=== PATIENT | female | born 1945 | race Caucasian/White ===

== ENCOUNTER → 2016-08-20 | Outpatient (CLI) | payer MEDICARE, BC ==
[~2016-08-20] MED LIST: ASCO-285 PO; CALC-586 PO; CHON250C2 PO; ETAN50DI3 SQ; FOLIC ACID PO; LEVO88TA39 PO; METH25PO21 MC; MULT1CAP47 PO; TRAM50TA53 PO; [UNRECOGNIZED DRUG - CODE] TD
== END ==
LOC: WC.BC 11:26
DX: Z12.31 Encounter for screening mammogram for malignant neoplasm of breast (principal)
CPT/HCPCS: 77063; G0202